=== PATIENT | female | born 1960 | race Caucasian/White ===

== ENCOUNTER 2024-10-09 21:35 | Emergency (ER) | payer MEDICARE, BC, SELFPAY ==
[2024-10-09 21:37] VITALS: BP 209/99
[2024-10-09 21:41] LABS: Glucose - Point of Care 268 mg/dl (70-99)
[2024-10-09 22:23] VITALS: BMI 26.6
[2024-10-09 22:24] VITALS: BP 167/69
--- NOTE | 2024-10-09 22:53 | ED.GENMED ---
History of Present Illness
General
Chief Complaint: Blood Sugar Problem
Source: patient and spouse
Exam Limitations: none
Time Seen by Provider: 10/09/24 22:17
Nursing documentation reviewed up to this point in time: agreed with
History of Present Illness
History of Present Illness:
This is a 64-year-old woman with history of qqj-ionlaqr-ztepiqwun diabetes who admits that she has been hesitant to start medications until most recently after visit with her PCP 1 week ago noted her hemoglobin A1c had trended up from 9, year ago to
now 13.8. She also notes several week history of paresthesias bilateral distal feet.
She was started on metformin XR 750 mg once daily which she began taking just 3 days ago. She has been monitoring her blood sugar, generally in the a.m. and states blood sugars in the morning are generally 250-280, improved to 200 this morning.
This evening while her son was visiting he recommended she check her blood sugar which was approximately 1 to 2 hours after consuming dinner. Her son was alarmed when her blood sugar was 350 and wanted her evaluated immediately in fact was about to
call 911.
Instead she arrives with her for further evaluation.
She has been attempting to watch her diet, began a low glycemic diet 1 week ago.
Overall feeling well, she denies dizziness nor lightheadedness, denies polydipsia, denies polyuria. No chest pain or cough no shortness of breath. She has been tolerating metformin thus far, denies abdominal pain, denies diarrhea.
She was also noted to have elevated cholesterol, was prescribed a statin which she has not started as yet.
She does note intermittent blurry vision which has been an issue over the past month or 2 but denies loss of vision. No headache.
Past History
Past History
ED Past Medical History: Hypercholesterolemia and NIDDM
ED Past Surgical History: None
Social History
Tobacco: Non-smoker
Alcohol: None
Personal:
Living: with family
Family History
Family History: Diabetes
Phy Exam
Physical Exam
Physical Exam:
GENERAL: 64-year-old woman appears her stated age, bright and alert, pleasant, easily communicative and in no acute distress. is accompanying.
EYE: anicteric
NECK: Supple, nontender, no meningismus, no significant adenopathy.
ENT: oral mucosa is moist. No rhinorrhea.
CARDIAC: Regular rate and rhythm. no murmur.
LUNGS: Clear breath sounds bilaterally, no acute respiratory distress, no wheezes/rales/rhonchi
ABDOMEN: Soft, nondistended, without focal tenderness
NEUROLOGICAL: Alert and oriented x3, no focal neuro deficits. Gait is dobson and steady.
SKIN: Warm and dry, normal color, skin intact. No rash.
MUSCULOSKELETAL: No C/C/E. peripheral pulses are full and equal b/l. No palpable tenderness.
PSYCH: Normal and appropriate interaction.
Course
Orders/Labs/Results
Orders:
Abnormal Lab Results
10/09/24
21:40
POC Glucose 268 H mg/dl
(70-99)
Vital Signs
Initial and Last Documented VS:
Initial Vital Signs
Temp Pulse Resp BP Pulse Ox
98.1 F 80 20 209/99 98
10/09/24 21:37 10/09/24 21:37 10/09/24 21:37 10/09/24 21:37 10/09/24 21:37
Last Documented Vital Signs
Temp Pulse Resp BP Pulse Ox
98.1 F 80 20 148/70 97
10/09/24 21:37 10/09/24 21:37 10/09/24 21:37 10/09/24 23:00 10/09/24 23:00
MDM/Problems Addressed
Differential Diagnosis Includes:
Patient presents with concern for elevated blood sugar, known history of poorly controlled bpl-ljpzcvy-osuzziiwr diabetes with recent hemoglobin A1c of 13.8. 1 year ago was 9.0.
Accu-Chek upon arrival 268
Overall well in appearance.
Nothing on exam to suggest DKA nor HHNK.
Nothing to suggest acute infectious process.
Lengthy discussion with patient regarding diabetes and its potential complications. I do suspect she has an element of diabetic related peripheral neuropathy.
Her intermittent blurry vision is likely related to hyperglycemia as well.
Recommend she continue metformin XR 750 mg once daily and continue to monitor blood sugar at least once per day.
If after 2 weeks, fasting blood sugar remains over 150 recommend increasing metformin XR 750 mg to twice daily.
She shows me her laboratory results from [facility] last week. LDL elevated at 180. She has been and strongly encouraged to initiate statin which she plans to do.
Recommend she continue low glycemic diet, remain active on a daily basis.
She has follow-up appointment scheduled with her PCP and for repeat fasting labs in 3 months time.
Blood pressure noted to be significantly elevated initially, has improved to 148/70. Patient states blood pressure normal at PCP office in the 130s systolic.
Chronic conditions affecting care: DM and Other (Hyperlipidemia)
*Pulse Oximetry
Patient hypoxic: no
*Critical Care Note
Total Time (30-74mins, 75-104mins- exclusive of procedures): Not Applicable
ED Attending Note
-
Portions of this chart may have been created with voice recognition software.� Occasional wrong word or��sound alike� substitutions may have occurred due to the inherent limitations of voice recognition software.
Discharge Plan
Departure
Patient Disposition: Home (Routine Discharge)
Date of Disposition: 10/09/24
Time of Disposition: 22:53
Patient with high blood pressure during this ER visit?: Yes
Condition: Good
Discharge Problem:
Non-insulin dependent diabetes mellitus, uncontrolled, with neuropathy
Instructions: Type 2 Diabetes (DC), BLOOD PRESSURE
Activity Restrictions/Additional Instructions:
Continue metformin XR 750 mg once daily for the next 2 weeks. If morning blood sugar remains above 150 then I want you to increase metformin XR 750 mg to 1 tablet twice daily.
I encourage you to start the statin medication prescribed by your family doctor, you can take this in the evening with metformin.
Continue low glycemic diet by continuing to avoid breads, pasta's, potatoes, rice.
Stay well-hydrated on a daily basis.
Continue to monitor your blood sugar no more than once per day and record results.
Follow-up with your primary care physician as already scheduled.
Interventions
Interventions:
*Risk Screen - Suicide Last Done: 10/09/24 22:24
*General Assessment Last Done: 10/09/24 21:37
*Neglect/Abuse Screening Last Done: 10/09/24 22:24
*ED- Fall Risk Assessment Last Done: 10/09/24 22:24
*ED COVID-19 Vaccine History Last Done: 10/09/24 22:24
*Nursing Disposition Last Done: 10/09/24 23:35
ED- Neurological Assessment Last Done: 10/09/24 22:24
Discharge Date and Time
Discharge Date/Time: 10/09/24 23:35
Print Language: PALESTINIAN
[2024-10-09 23:00] VITALS: BP 148/70
== END 2024-10-09 23:35 | disposition home or self-care (01) ==
LOC: EMR 21:35
PROVIDERS: EMERGENCY PHYSICIAN Emergency Medicine; FAMILY PHYSICIAN Family Medicine
DX: E11.40 Type 2 diabetes mellitus with diabetic neuropathy, unspecified (principal); R20.2 Paresthesia of skin; E78.00 Pure hypercholesterolemia, unspecified; Z79.84 Long term (current) use of oral hypoglycemic drugs; Z83.3 Family history of diabetes mellitus
CPT/HCPCS: 99282; 82962